=== PATIENT | male | born 1980 | race Two or more races ===

== ENCOUNTER 2022-08-05 20:23 | Inpatient (IN) | payer OTHER ==
[~2022-08-05] VITALS: Ht 188 cm; Wt 114.3 kg
--- NOTE | 2022-08-05 20:40 | NUR ---
IVORY39 FR HOME PT WAS FOUND BY FATHER SEIZING AT THE SIDEWALK. PT IS ALCOHOLIC, ON DETOX, TOOK VODKA 3 SHOTS TODAY AND CANNOT REMEMBER WHAT HAPPENED. PATIENT BROUGHT IN TACHY AT 140, PATIENT A0X3, HOOKED UP TO POX AND MONITOR
[2022-08-05] MEDS ORDERED: LORAZEPAM INJ 2 MG/ML VIAL IVP ONE (21:00)
[2022-08-05] MEDS ORDERED: IV NS 0.9% 1,000 ML BAG IV ONE (21:00)
[2022-08-05] MEDS ORDERED: LORAZEPAM INJ 2 MG/ML VIAL ONE (21:05)
--- NOTE | 2022-08-05 21:08 | NUR ---
BLOOD COLLECTED AND SENT TO LAB
--- NOTE | 2022-08-05 21:10 | NUR ---
URINE COLLCETED AND SENT TO LAB
[2022-08-05 21:18] LABS: BASOPHILS % (AUTO) 0.3 % (0.0-2.0); EOSINOPHILS % (AUTO) 0.1 % (0.0-6.0); HEMATOCRIT 50 % (39-51); HEMOGLOBIN 16.8 g/dL (13.5-17.5); LYMPHOCYTES # (AUTO) 0.6 K/uL (0.8-4.8); LYMPHOCYTES % (AUTO) 5.5 % (20.0-44.0); MEAN CORPUSCULAR HGB CONC 34 g/dl (31.0-36.0); MEAN CORPUSCULAR VOLUME 95 fL (80-96); MONOCYTES # (AUTO) 0.6 K/uL (0.1-1.30); MONOCYTES % (AUTO) 5.5 % (2.0-12.0); NEUTROPHILS # (AUTO) 9.3 K/uL (1.8-8.9); NEUTROPHILS % (AUTO) 88.6 % (43.0-81.0); PLATELET COUNT (AUTO) 129 K/uL (150-450); RED BLOOD CELL COUNT(AUTO) 5.27 MIL/uL (4.5-6.0); WHITE BLOOD COUNT (AUTO) 10.5 K/uL (4.3-11.0)
[2022-08-05 21:29] LABS: BILIRUBIN,URINE 2+ (NEGATIVE); COLOR,URINE YELLOW (YELLOW); LEUKOCYTE ESTERASE ,URINE NEGATIVE (NEGATIVE); NITRITE, URINE POSITIVE (NEGATIVE); PROTEIN,URINE 3+ mg/dl (NEGATIVE); UGLUCOSE NEGATIVE (NEGATIVE)
[2022-08-05 21:32] LABS: CALCIUM, SERUM 8.9 mg/dL (8.5-10.1); CARBON DIOXIDE 19 mmol/L (21-32); CHLORIDE 96 mmol/L (98-107); CREATININE 1.6 mg/dL (0.6-1.3); GLUCOSE 167 mg/dL (74-106); POTASSIUM 3.3 mmol/L (3.5-5.1); SODIUM SERUM 133 mmol/L (136-145); UREA NITROGEN, BLOOD 8 mg/dL (7-18)
[2022-08-05 21:38] LABS: ALANINE AMINOTRANSFERASE 125 U/L (12-78); ALBUMIN 3.6 g/dL (3.4-5.0); ALCOHOL, BLOOD < 3 mg/dL (0-10); ALKALINE PHOSPHATASE 76 U/L (46-116); ASPARTATE AMINOTRANSFERASE 142 U/L (15-37); BILIRUBIN,DIRECT 0.3 mg/dL (0.0-0.2); BILIRUBIN,TOTAL 1.3 mg/dL (0.2-1.0); TOTAL PROTEIN, SERUM 6.9 g/dL (6.4-8.2)
[2022-08-05 21:42] LABS: BACTERIA,URINE 1+ /HPF (None Seen); COARSE GRANULAR CASTS,URINE Few /LPF (None Seen); MUCUS,URINE Moderate /LPF (None Seen); RBC,URINE 51-80 /HPF (0-2); WBC,URINE 0-2 /HPF (0-3)
[2022-08-05] MEDS ORDERED: ACETAMINOPHEN 325 MG TABLET PO PRN (22:00)
[2022-08-05] MEDS ORDERED: ONDANSETRON HCL/PF 4 MG/2 ML VIAL IVP PRN (22:00)
[2022-08-05] MEDS ORDERED: LORAZEPAM INJ 2 MG/ML VIAL IV PRN (22:00)
[2022-08-05] MEDS ORDERED: ENOXAPARIN SODIUM 40 MG/0.4 ML DISP.SYRIN SQ SCH (22:00)
--- NOTE | 2022-08-05 22:22 | NUR ---
LACTIC 10.8
[2022-08-05] MEDS ORDERED: THIAMINE HCL 100 MG TABLET PO ONE (22:30)
[2022-08-05] MEDS ORDERED: FOLIC ACID 1 MG TABLET PO ONE (22:30)
[2022-08-05] MEDS ORDERED: THIAMINE HCL 100 MG TABLET ONE (22:45)
[2022-08-05] MEDS ORDERED: FOLIC ACID 1 MG TABLET ONE (22:45)
[2022-08-05] MEDS ORDERED: ONDANSETRON HCL/PF - ER 4 MG/2 ML VIAL IV ONE (23:00)
[2022-08-05] MEDS ORDERED: IV D5/ 0.9% NACL 1,000 ML IV ONE (23:00)
--- NOTE | 2022-08-05 23:38 | NUR ---
REPORT GIVEN TO SHERYL MARSHALL
--- NOTE | 2022-08-05 23:52 | NUR ---
TRANSFERRED TO 326 UNDER ACLS
[2022-08-06] VITALS: BP 157/100
[2022-08-06] MEDS: CHLORDIAZEPOXIDE HCL 25 MG CAPSULE PO SCH ×4 (00:20→17:27)
[2022-08-06] MEDS: POTASSIUM CL. PREMIX PERIPHER. 50 ML IV SCH ×2 (00:40→01:31)
[2022-08-06 01:47] VITALS: BP 148/93
--- NOTE | 2022-08-06 01:55 | NUR ---
ADMISSION NOTE PATIENT BROUGHT IN UNIT AT AROUND 2355, ACCOMPANIED BY 2 ER PERSONNEL VIA [employer]. NO S/S OF APPARENT DISTRESS IN ROOM AIR, BREATHING EVEN AND UNLABORED. PATIENT DENIES PAIN BUT REPORTS NAUSEA-- GIVEN ZOFRAN ORDERED PRN. PATIENT REPORTS NOT HAVING ANY VACCINATIONS, INCLUDING COVID. PATIENT REPORTS DRINKING 3 CUPS OF VODKA BEFORE SEIZURE HAPPENED AND SMOKES 2 PACKS OF CIGARETTE PER DAY-- SMOKING CESSATION INITIATED. PATIENT WISHES TO BE FULL CODE. NEW ID BAND ON PATIENT. PATIENT CAME IN WITH LEFT HAND #20G IV ACCESS INTACT AND PATENT AND HAD TO ADD ADDITIONAL IV ACCESS ON LEFT FA#20G. NEW ID BAND ON PATIENT. BELONGINGS CHECKED AND SIGNED FOR. V/S TAKEN AND CHARTED. PATIENT WAS ORIENTED IN THE UNIT AND THE USE OF CALL LIGHT, SAFETY IN PLACE-- BED IN LOWEST, LOCKED POSITION, BED RAILS PADDED FOR SEIZURE PRECAUTION, BED ALARM IN PLACE, CALL LIGHT WITHIN REACH. WILL CONTINUE WITH PATIENT'S PLAN OF CARE AND FOLLOW THROUGH DOCTOR'S ORDERS.
[2022-08-06 04:00] VITALS: BP 156/96
[2022-08-06] MEDS: IV NS 0.9% 1,000 ML IV PRN ×2 (05:42→16:31)
[2022-08-06 06:33] LABS: BASOPHILS % (AUTO) 0.4 % (0.0-2.0); EOSINOPHILS % (AUTO) 0.3 % (0.0-6.0); HEMATOCRIT 44 % (39-51); LYMPHOCYTES # (AUTO) 1.2 K/uL (0.8-4.8); LYMPHOCYTES % (AUTO) 19.3 % (20.0-44.0); MEAN CORPUSCULAR HGB CONC 34 g/dl (31.0-36.0); MEAN CORPUSCULAR VOLUME 95 fL (80-96); MONOCYTES # (AUTO) 0.4 K/uL (0.1-1.30); MONOCYTES % (AUTO) 6.7 % (2.0-12.0); NEUTROPHILS # (AUTO) 4.4 K/uL (1.8-8.9); NEUTROPHILS % (AUTO) 73.3 % (43.0-81.0); PLATELET COUNT (AUTO) 93 K/uL (150-450); RED BLOOD CELL COUNT(AUTO) 4.65 MIL/uL (4.5-6.0)
[2022-08-06 07:00] VITALS: BP 137/98
[2022-08-06 07:18] LABS: ALBUMIN 3.1 g/dL (3.4-5.0); BILIRUBIN,DIRECT 0.4 mg/dL (0.0-0.2); BILIRUBIN,TOTAL 1.7 mg/dL (0.2-1.0)
--- NOTE | 2022-08-06 07:26 | NUR ---
NOC RN CLOSING NOTE PATIENT A/OX3, AWAKE, BREATHING EVEN AND UNLABORED IN ROOM AIR. DID NOT HAVE ANY SEIZURE THROUGHOUT SHIFT. ALL NEEDS ATTENDED. ALL SCHEDULED MEDICATIONS ADMINISTERED. NO SIGNIFICANT CHANGE IN MY SHIFT. ENDORSED TO RN KALEN FOR THE CONTINUITY OF PATIENT CARE.
[2022-08-06 07:29] LABS: CALCIUM, SERUM 8.3 mg/dL (8.5-10.1); CREATININE 1.1 mg/dL (0.6-1.3); MAGNESIUM 2.2 mg/dL (1.8-2.4); PHOSPHORUS 3.3 mg/dL (2.5-4.9); POTASSIUM 3.5 mmol/L (3.5-5.1)
[2022-08-06 07:48] LABS: BASOPHILS % (MANUAL) 0 % (0.0-2.0); EOSINOPHILS % (MANUAL) 0 % (0-4); LYMPHOCYTES % (MANUAL) 16 % (16-48); MONOCYTES % (MANUAL) 8 % (0-11.0); NEUTROPHILS % (MANUAL) 76 (42-76)
--- NOTE | 2022-08-06 07:48 | NUR ---
RN OPENING NOTES RECEIVED PATIENT , ON BED ASLEPP BUT AROUSABLE , ROOM AIR AND NO S0B OR DITRESS NOTED , NO C/O OF PAIN AND DISCOMFORT , IV ACCESS ON THE LEFT HAND #20 WITH NS @125 ML /HR ON GOING , SAFETY MEASURES PROVIDED, CALL LIGHT WITHIN REACH, WILL MONITOR FOR ANY CHANGES
--- NOTE | 2022-08-06 08:37 | NUR ---
WOUND CARE CONSULT: PT SEEN FOR REDNESS TO [facility]. REDNESS IS NONTENDER AND IS BLANCHABLE. CURRENT KATIANA SCORE IS 20. WILL SEE PRN.
[2022-08-06 12:00] VITALS: BP 140/103
[2022-08-06] MEDS ORDERED: CHLO25CA22 PO (13:36)
--- NOTE | 2022-08-06 14:39 | NUR ---
SW Consult: SW consult requested for ETOH abuse. Patient brought to the hospital due to withdrawal and seizures. Patient appeared to be alert and oriented x3 (self,place,situation). Patient was cooperative with this director underwriter sales while conducting the assessment. Patient appeared to present with a flat affect. He was able to maintain a proper conversation, however, he was minimal with his answers. Pt stated that he lives at home with his mother located at [address] [place] [address]; ([phone]). Pt current unemployed at this time. Pt reported he was brought to the hospital due to a seizure and experiencing seizures. He stated that he drinks daily and smokes daily. He did not want to identify what he smokes or drinks, he just reported he drinks heavily. He stated that the last treatment center was at [facility] in 2020. He stated he has been in treatment twice. He stated he has been dealing with this for many years. SW assessed for any mental illness and pt denied. SW assessed for suicidal or homicidal ideation and pt denied. Pt denied visual/auditory hallucinations. Pt was accepting of resources for substance abuse. DC PLAN: Pt lives at home [address] [place] [id number]; ([phone]) and lives with mother. He stated he will be discharging to a detox center. Substance Abuse resources provided included: [facility] Substance Abuse Self-Helpline ([facility]) ; [facility] [address] [facility]. [place] 9[address] ; [facility] [address] [facility] [address] ; [facility] [address] [facility] [address] ; [facility] [address] [facility] [address] ; [facility] [address] [facility] [address] ; [facility] [address] [facility] [id number] ; [facility] Substance Abuse Helpline(S[facility] ; [facility] ; [facility]; [facility]; [facility] [place]; [facility] [place]; [facility] [place]; [place]; [facility] [place]; [facility] [place]; Alcoholics Anonymous [facility]; [facility] ; Marijuana Anonymous [facility]; Narcotics Anonymous www.na.org;
[2022-08-06 16:03] VITALS: BP 148/97
--- NOTE | 2022-08-06 17:43 | NUR ---
TIRE REPAIRMAN NOTES PATIENT WAS SEEN BY CLINICAL ANALYST JUAN DAVID - HOSPITALIST AND WITH ORDER FOR DISCHARGE TO GO HOME , ALL DISCHARGE PAPERS WERE PREPARED AND INSTRUCTIONS PROVIDED REGARDING MEDICATIONS , FOLLOW UP WITH PCP AND WHEN TO CALL 911 IN CASE OF EMERGENCY , PATIENT IS ALERT AND ORIENTED AND ABLE TO MAKE NEEDS KNOWN , UNDERSTOOD INSTRUCTIONS PROVIDED , ALL BELONGINGS WERE TAKEN AND FORM WAS SIGNED . ALL DUE MEDS GIVEN ORDERED , PATIENT WAS [facility] AND PROVIDED TRANSPORTATION VIA PRIVATE CAR , IV ACCESS AND ID BADGE REMOVED ,PATIENT LEFT IN A STABLE CONDITION ,
== END 2022-08-06 17:45 | disposition home or self-care (01) | DRG 53 ==
LOC: ER 20:25 → TELE 23:23 → MED 08-06 00:22 → TELE 08-06 01:35
PROVIDERS: ADMIT Nurse Practitioner Acute Care; ATTEND Nurse Practitioner Acute Care
DX: G40.89 Other seizures (principal); N17.0 Acute kidney failure with tubular necrosis; E87.1 Hypo-osmolality and hyponatremia; E87.20 Acidosis, unspecified; D68.59 Other primary thrombophilia; F10.239 Alcohol dependence with withdrawal, unspecified; E86.1 Hypovolemia; Y90.0 Blood alcohol level of less than 20 mg/100 ml; E86.0 Dehydration; F41.9 Anxiety disorder, unspecified; R74.01 Elevation of levels of liver transaminase levels; E66.9 Obesity, unspecified; Z68.32 Body mass index [BMI] 32.0-32.9, adult; E87.6 Hypokalemia; Z72.0 Tobacco use
CPT/HCPCS: 36415; 70450-TC; 76700-TC; 80048-TC; 80061-TC; 80076-TC; 81001; 83605-TC; 83735-TC; 84100-TC; 85025-TC; 87040-TC; 87081-TC; 87086-TC; A4223; G0378; G0480; J1650; J2060; J2405; J3480; J7030; J7042

== ENCOUNTER 2022-12-13 15:01 | Emergency (ER) | payer OTHER ==
[~2022-12-13] VITALS: Ht 182.9 cm; Wt 117.9 kg
[~2022-12-13 15:01] MED LIST: CHLO25CA22 PO
[2022-12-13 17:23] VITALS: BP 146/89; TEMP 98.3; O2SAT 98
== END 2022-12-13 17:24 | disposition left against medical advice (07) ==
LOC: ER 15:09
DX: F10.129 Alcohol abuse with intoxication, unspecified (principal); Y90.9 Presence of alcohol in blood, level not specified

== ENCOUNTER 2023-04-13 21:30 | Emergency (ER) | payer BC, OTHER ==
[~2023-04-13] VITALS: Ht 180.3 cm; Wt 127.0 kg
[2023-04-13 21:47] VITALS: TEMP 98.4
[2023-04-13 22:01] LABS: BASOPHILS % (AUTO) 0.6 % (0.0-2.0); EOSINOPHILS % (AUTO) 0.1 % (0.0-6.0); HEMATOCRIT 48 % (39-51); HEMOGLOBIN 16.3 g/dL (13.5-17.5); LYMPHOCYTES # (AUTO) 1.4 K/uL (0.8-4.8); LYMPHOCYTES % (AUTO) 19.6 % (20.0-44.0); MEAN CORPUSCULAR HEMOGLOBIN 32 PG (26.0-33.0); MEAN CORPUSCULAR HGB CONC 34 g/dl (31.0-36.0); MEAN CORPUSCULAR VOLUME 92 fL (80-96); MONOCYTES # (AUTO) 0.4 K/uL (0.1-1.30); MONOCYTES % (AUTO) 5.5 % (2.0-12.0); NEUTROPHILS # (AUTO) 5.5 K/uL (1.8-8.9); NEUTROPHILS % (AUTO) 74.2 % (43.0-81.0); PLATELET COUNT (AUTO) 191 K/uL (150-450); RED BLOOD CELL COUNT(AUTO) 5.16 MIL/uL (4.5-6.0); RED CELL DISTRIBUTION WIDTH 15.3 % (11.5-15.0); WHITE BLOOD COUNT (AUTO) 7.4 K/uL (4.3-11.0)
[2023-04-13 22:20] LABS: CALCIUM, SERUM 8.4 mg/dL (8.5-10.1); CREATININE 1.2 mg/dL (0.6-1.3); POTASSIUM 4.1 mmol/L (3.5-5.1)
[2023-04-13 22:28] LABS: ALBUMIN 3.8 g/dL (3.4-5.0); BILIRUBIN,DIRECT 0.3 mg/dL (0.0-0.2); BILIRUBIN,TOTAL 0.9 mg/dL (0.2-1.0); TOTAL PROTEIN, SERUM 7.2 g/dL (6.4-8.2)
[2023-04-13] MEDS ORDERED: Thiamine 100 MG/ML VIAL ONE (23:45)
[2023-04-14] MEDS: IV D5 LR 1,000 ML IV ONE (00:08)
[2023-04-14] MEDS: Thiamine 100 MG in IV D5W 50 ML IV ONE (00:08)
[2023-04-14 05:38] VITALS: BP 135/76; O2SAT 98
== END 2023-04-14 05:38 | disposition home or self-care (01) ==
LOC: ER 21:32
DX: F10.129 Alcohol abuse with intoxication, unspecified (principal); Z79.899 Other long term (current) drug therapy; Z60.2 Problems related to living alone; Y90.8 Blood alcohol level of 240 mg/100 ml or more
CPT/HCPCS: 99284; 85025; 80048; 80076; 36415; 80320; 96365; J3490 ×2; J7060 ×2; J3411 ×2; G0480

== ENCOUNTER 2023-04-20 13:48 | Emergency (ER) | payer BC, OTHER ==
[~2023-04-20] VITALS: Ht 170.2 cm; Wt 128.4 kg
[2023-04-20 14:00] VITALS: TEMP 98.3
[2023-04-20 21:04] VITALS: BP 121/84; O2SAT 97
== END 2023-04-20 21:09 | disposition home or self-care (01) ==
LOC: ER 13:48
DX: F10.229 Alcohol dependence with intoxication, unspecified (principal); Z60.2 Problems related to living alone; Z79.899 Other long term (current) drug therapy; Y90.9 Presence of alcohol in blood, level not specified
CPT/HCPCS: 82962-TC